=== PATIENT | female | born 1940 | race Caucasian/White ===

== ENCOUNTER 2023-10-27 16:58 | Inpatient (IN) | payer BC, MEDICARE ==
[2023-10-27] MEDS ORDERED: Nitroglycerin 0.4 MG Tab.SL SL PRN (17:07)
[2023-10-27 17:13] LABS: BASOPHILS ABSOLUTE AUTO 0.07 K/uL (0.00-0.10); BASOPHILS PERCENT AUTO 0.8 % (0.1-1.3); EOSINOPHILS ABSOLUTE AUTO 0.34 K/uL (0.00-0.40); EOSINOPHILS PERCENT AUTO 3.9 % (0.0-5.4); HEMATOCRIT 35.5 % (34.3-46.0); HEMOGLOBIN 11.5 g/dL (11.2-15.5); IMMATURE GRAN ABSOLUTE AUTO 0.02 K/uL (0.00-0.23); IMMATURE GRAN PERCENT AUTO 0.2 % (0.0-0.7); LYMPHOCYTES ABSOLUTE AUTO 1.89 K/uL (0.8-3.3); LYMPHOCYTES PERCENT AUTO 21.8 % (11.4-47.7); MEAN CORPUSCULAR HEMOGLOBIN 28.9 pg (31.6-35.5); MEAN CORPUSCULAR HGB CONC 32.4 g/dL (31.6-35.5); MEAN CORPUSCULAR VOLUME 89.2 fL (81.4-99.0); MONOCYTES ABSOLUTE AUTO 0.72 K/uL (0.20-0.90); MONOCYTES PERCENT AUTO 8.3 % (3.3-12.6); NEUTROPHILS ABSOLUTE AUTO 5.63 K/uL (1.0-7.6); PLATELET COUNT,PLT 268 K/uL (130-375); RED BLOOD CELL COUNT 3.98 M/uL (3.77-5.24); WHITE BLOOD CELL COUNT,WBC 8.7 K/uL (3.2-11.0)
[2023-10-27] MEDS: Sodium Chloride 0.9% 1,000 ML IV SCH ×3 (17:17→23:53)
[2023-10-27] MEDS: Morphine 4 MG/ML Syringe IVPUSH PRN (17:18)
[2023-10-27] MEDS: Aspirin 81 MG Tab.Chew PO ONE (17:18)
[2023-10-27 17:37] LABS: ALANINE AMINOTRANSFERASE,ALT 18 U/L (12-78); ALBUMIN 3.5 g/dL (3.4-5.0); ALKALINE PHOSPHATASE 125 U/L (46-116); ANION GAP 14.6 mmol/L (5.0-14.0); ASPARTATE AMNIOTRANSFERASE,AST 16 U/L (15-37); BILIRUBIN TOTAL 0.2 mg/dL (0.2-1.0); BLOOD UREA NITROGEN,BUN 34 mg/dL (7-18); CALCIUM 8.5 mg/dL (8.5-10.1); CARBON DIOXIDE,CO2 23 mmol/L (21-32); CHLORIDE,CL 108 mmol/L (100-108); CREATININE 1.5 mg/dL (0.6-1.0); EST CRCL DRUG DOSING (CG) 23.51 mL/min; ESTIMATED GFR 34 mL/min (>60); GLUCOSE RANDOM 171 mg/dL (74-106); PROTEIN TOTAL,TP 6.9 g/dL (6.4-8.2); SODIUM,NA 146 mmol/L (140-148); TROPONIN I HIGH SENSITIVITY 6.9 pg/mL (<=60.3)
[2023-10-27] MEDS: HYDROmorphone 0.5 MG/0.5 ML Syringe IVPUSH ONE (17:37)
[2023-10-27] MEDS: Albuterol/Ipratropium 3.0-0.5 MG/3 ML Neb Soln NEB ONE (17:42)
[2023-10-27] MEDS: Sodium Chloride 0.9% 10 ML Syringe FLUSH PRN (17:46)
[2023-10-27] MEDS ORDERED: Sodium Chloride 0.9% 1,000 ML IV SCH (18:00)
[2023-10-27] MEDS: Ondansetron 4 MG/2 ML SDV IVPUSH ONE (18:04)
[2023-10-27] MEDS: Ketorolac 30 MG/ML SDV IVPUSH ONE (18:13)
[2023-10-27 18:50] LABS: BASE EXCESS ARTERIAL -6.4 mm/L; BICARBONATE,ARTERIAL 18.2 mmol/L (22.0-26.0); CARBOXYHEMOGLOBIN 2.1 % (0.0-1.6); METHEMOGLOBIN 1.3 %; OXYHEMOGLOBIN 93.7 %; PCO2 ARTERIAL 34.8 mmHg (35.0-42.0); PO2 ARTERIAL 91.6 mmHg (75.0-100.0); TOTAL HEMOGLOBIN 11.4 g/dL (12.0-16.0)
[2023-10-27 20:02] LABS: CORONAVIRUS COVID-19 NAA NEGATIVE (NEGATIVE); INFLUENZA A NAA NEGATIVE (NEGATIVE); INFLUENZA B NAA NEGATIVE (NEGATIVE); RESPIRATORY SYNCYTIAL VIR NAA NEGATIVE (NEGATIVE)
[2023-10-27 20:35] LABS: APPEARANCE,URINE CLEAR (CLEAR); BILIRUBIN,URINE NEGATIVE (NEGATIVE); COLOR,URINE YELLOW (YELLOW); GLUCOSE,URINE NEGATIVE (NEGATIVE); KETONES,URINE NEGATIVE (NEGATIVE); LEUKOCYTE ESTERASE,URINE NEGATIVE (NEGATIVE); NITRITE,URINE NEGATIVE (NEGATIVE); OCCULT BLOOD,URINE NEGATIVE (NEGATIVE); PH,URINE 5.5 (5.0-8.0); PROTEIN,URINE 30 mg/dL (NEGATIVE); UROBILINOGEN,URINE 0.2 EU/dL (0.2-1.0)
[2023-10-27 20:41] LABS: AMORPHOUS SEDIMENT,URINE NOT SEEN; BACTERIA,URINE MANY; EPITHELIAL CELLS,URINE FEW; MUCUS,URINE RARE; RBC,URINE 0-5 (0-5); WBC,URINE 0-5 (0-5)
[2023-10-27] MEDS: Albuterol/Ipratropium 3.0-0.5 MG/3 ML Neb Soln NEB STA (22:45)
[2023-10-27] MEDS: Albuterol/Ipratropium 3.0-0.5 MG/3 ML Neb Soln ONE (22:46)
[2023-10-27] MEDS ORDERED: Melatonin 3 MG Tab PO PRN (23:20)
[2023-10-27] MEDS ORDERED: Ondansetron 4 MG Tab.DIS PO PRN (23:20)
[2023-10-27] MEDS ORDERED: Acetaminophen 325 MG Tab PO PRN (23:20)
[2023-10-27] MEDS ORDERED: Ondansetron 4 MG/2 ML SDV IV PRN (23:20)
[2023-10-27] MEDS ORDERED: Sennosides/Docusate Sodium 50-8.6 MG Tab PO PRN (23:20)
[2023-10-27] MEDS: Levofloxacin/Dextrose 5%-Water 750 MG in Premix Bag 1 BAG IV SCH (23:53)
[2023-10-27] MEDS: Enoxaparin 30 MG/0.3 ML Syringe SUBCUT SCH (23:59)
[2023-10-28] MEDS: Albuterol 0.083% 2.5 MG/3 ML Neb Soln NEB PRN (00:42)
[2023-10-28] MEDS: methylPREDNISolone Sodium Succinate 125 MG/2 ML SDV IVPUSH STA (01:31)
[2023-10-28 01:37] LABS: LACTIC ACID 2.7 mmol/L (0.4-2.0)
[2023-10-28] MEDS: Heparin Sodium 5,000 Units/ML Vial IVPUSH STA (02:32)
[2023-10-28] MEDS: Heparin Sodium/D5W 25,000 UNITS/500 ML BAG IV SCH (02:33)
[2023-10-28] MEDS: Heparin Sodium/D5W 500 ML ONE (02:37)
[2023-10-28] MEDS: Heparin Sodium 5,000 Units/ML Vial ONE (02:40)
[2023-10-28] MEDS ORDERED: Albuterol/Ipratropium 3.0-0.5 MG/3 ML Neb Soln NEB SCH (06:00)
[2023-10-28] MEDS ORDERED: Lactobacillus Rhamnosus GG (Probiotic) Cap PO SCH (09:00)
[2023-10-28] MEDS ORDERED: methylPREDNISolone Sodium Succinate 125 MG/2 ML SDV IVPUSH SCH (09:00)
== END 2023-10-28 04:54 | DRG 193 ==
LOC: JP.ED 16:58 → JP.MS 22:57
PROVIDERS: ADMIT Registered Nurse; ATTEND Registered Nurse
PROC: 4A033R1 Measurement of Arterial Saturation, Peripheral, Percutaneous Approach (ICD-10-PCS; principal; 2023-10-27)
DX: R07.89 Other chest pain (principal); R09.02 Hypoxemia; I10 Essential (primary) hypertension; J45.909 Unspecified asthma, uncomplicated; J18.9 Pneumonia, unspecified organism; I21.4 Non-ST elevation (NSTEMI) myocardial infarction; N17.9 Acute kidney failure, unspecified; J45.901 Unspecified asthma with (acute) exacerbation; I12.9 Hypertensive chronic kidney disease with stage 1 through stage 4 chronic kidney disease, or unspecified chronic kidney disease; N18.32 Chronic kidney disease, stage 3b; I95.9 Hypotension, unspecified; Z88.0 Allergy status to penicillin; Z91.048 Other nonmedicinal substance allergy status; Z79.51 Long term (current) use of inhaled steroids; Z79.899 Other long term (current) drug therapy; Z98.49 Cataract extraction status, unspecified eye; Z90.49 Acquired absence of other specified parts of digestive tract
CPT/HCPCS: 0241U; 36415; 36600; 71045; 71250; 80053; 80307; 81001; 82803; 83605; 83880; 84145; 84484; 85025; 85379; 85730; 86140; 87040; 93005; 93010; 94640; 96361; 96374; 96375; 99223; 99239; 99285; A9270-GY; J1170; J1644; J1650; J1885; J1956; J2270; J2405; J2930; J3370; J3490; J7030; J7050; J7620